=== PATIENT | male | born 2000 | race African-American/Black ===

== ENCOUNTER 2021-06-22 03:37 | Emergency (ER) | payer OTHER, MEDICAID ==
[~2021-06-22] VITALS: Ht 177.8 cm; Wt 72.6 kg
[2021-06-22 03:45] VITALS: BP_SYST 143
[2021-06-22] MEDS ORDERED: ONDA-8 TL (04:11)
[2021-06-22] MEDS ORDERED: ONDANSETRON 4 MG ODT TAB PO ONE (04:15)
[2021-06-22] MEDS ORDERED: ONDANSETRON 4 MG ODT TAB ONE (04:18)
[2021-06-22 04:20] VITALS: BP_SYST 143
== END 2021-06-22 04:28 | disposition home or self-care (01) ==
LOC: SED 03:37
DX: R11.2 Nausea with vomiting, unspecified (principal); Z79.899 Other long term (current) drug therapy
CPT/HCPCS: 99283; Q0162